=== PATIENT | male | born 1970 | race Caucasian/White ===

== ENCOUNTER 2022-06-14 15:59 | Inpatient (IN) | payer BC ==
[~2022-06-14] VITALS: Ht 182.9 cm; Wt 87.5 kg
[2022-06-14 16:00] VITALS: BP_SYST 143
--- NOTE | 2022-06-14 16:04 | NUR ---
CALLED TO CHARGE NURSE FOR IMMEDIATE BED NEED, PT TRIAGED AND BROUGHT IMMEDIATELY BROUGHT BACK TO BED #8 VIA WHEELCHAIR. SPOUSE WITH PT. DR SANDOVAL CALLED TO BEDSIDE UPON ARRIVAL.
--- NOTE | 2022-06-14 16:05 | NUR ---
PT STATES AT 1100 TODAY STARTED HAVING ON AND OFF CHEST PAIN, AT 1300 PAINS STARTED TO LEFT ARM, LEFT CHEST AND BETWEEN SHOULDER BLADES. PT STATES PAIN HAS NOW BECOME CONSTANT. PT PALE AND DIAPHORETIC. WITH PT.
[2022-06-14] MEDS ORDERED: MORPHINE 4 MG INJ. 4 MG/ML VIAL ONE (16:14)
[2022-06-14] MEDS ORDERED: NITROGLYCERIN 0.4 MG TAB.SUBL SL ONE ×2 (16:15→18:00)
[2022-06-14] MEDS ORDERED: MORPHINE 4 MG INJ. 4 MG/ML VIAL IVP ONE ×3 (16:15→18:00)
[2022-06-14] MEDS ORDERED: ASPIRIN 325 MG TABLET PO ONE (16:15)
[2022-06-14] MEDS ORDERED: NITROGLYCERIN 1 INCH (GM) OINT. TD ONE (16:15)
--- NOTE | 2022-06-14 16:16 | NUR ---
[facility]ED [facility] TO [facility]. [facility] STATED [facility] ARE CLOSED FOR STEMI SPOKE TO DUANE
--- NOTE | 2022-06-14 16:16 | NUR ---
EKG FAXED TO [facility] FOR EVALUATION
--- NOTE | 2022-06-14 16:22 | NUR ---
FAXED EKG TO [facility]. STATED SHE WILL CALL BACK WITH [employer] FOR PEER TO PEER WITH DR. SANDOVAL SPOKE TO JIMMY
[2022-06-14] MEDS ORDERED: NACL 0.9% 1,000 ML IV ONE (16:45)
[2022-06-14] MEDS ORDERED: FAMOTIDINE PF 20 MG/2 ML VIAL IVP ONE (16:45)
[2022-06-14 16:47] LABS: BASOPHILS % (AUTO) 0.2 % (0.0-2.0); EOSINOPHILS # (AUTO) 0.1 K/uL (0.0-0.4); EOSINOPHILS % (AUTO) 0.6 % (0.0-4.0); HEMATOCRIT 47.4 % (36-54); LYMPHOCYTES # (AUTO) 2.2 K/uL (1.0-5.5); LYMPHOCYTES % (AUTO) 16.7 % (20.5-51.5); MEAN CORPUSCULAR HEMOGLOBIN 31 pg (27-31); MEAN CORPUSCULAR HGB CONC 34 % (32-36); MEAN CORPUSCULAR VOLUME 92 fL (79.0-98.0); MONOCYTES # (AUTO) 0.6 K/uL (0.0-1.0); MONOCYTES % (AUTO) 4.9 % (1.7-9.3); NEUTROPHILS # (AUTO) 10.2 K/uL (1.8-7.7); NEUTROPHILS % (AUTO) 77.6 % (40.0-70.0); PLATELET COUNT (AUTO) 178 K/uL (130-430); RED BLOOD CELL COUNT(AUTO) 5.14 MIL/uL (4.2-6.2); RED CELL DISTRIBUTION WIDTH 12.7 % (9.0-15.0); WHITE BLOOD COUNT (AUTO) 13.1 K/uL (4.8-10.8)
[2022-06-14 16:48] LABS: ALANINE AMINOTRANSFERASE 35 U/L (12-78); ANION GAP 8 (5-15); ASPARTATE AMINOTRANSFERASE 16 U/L (10-37); CALCIUM 8.9 mg/dL (8.4-11.0); CHLORIDE 104 mmol/L (98-107); CREATININE 1.29 mg/dL (0.55-1.30); GFR AFRICAN AMERICAN 75 mL/min (>90); GLUCOSE 139 mg/dL (70-99); TOTAL BILIRUBIN 0.3 mg/dL (0.0-1.0); UREA NITROGEN, BLOOD 15 mg/dL (8-21)
[2022-06-14 16:50] LABS: PHOSPHORUS 2.3 mg/dL (2.7-4.5)
--- NOTE | 2022-06-14 16:50 | NUR ---
PORTABLE XRAY AT THE BEDSIDE
[2022-06-14 17:12] LABS: PROTHROMBIN TIME 9.9 SECS (9.5-12.5)
--- NOTE | 2022-06-14 17:25 | NUR ---
AMADOU HERNANDEZ CALLED BACK TO GIVE UPDATE. STATED PLAN IS TO DIRECT ADMIT TO [facility] TOMORROW. STATED THEY WILL CALL BACK WITH TRANSFER INFO ONCE AVAILBLE. SPOKE TO JIMMY
--- NOTE | 2022-06-14 17:29 | NUR ---
NO ACUTE CHNAGES IN CONDITION, PT IN NAD.
[2022-06-14] MEDS ORDERED: ONDANSETRON HCL 4 MG/2 ML VIAL IVP ONE (18:00)
--- NOTE | 2022-06-14 18:12 | NUR ---
CONTACT WITH PT, LAYING ON BED, IN NO APPARENT DISTRESS. AT BEDSIDE, MS AND ZOFRAN IV ORDERED, PT'S BP 120/63, PAIN 2/10, PER PT, DOES NOT WANT ANY PAIN MEDS AT THIS TIME. DR SANDOVAL MADE AWARE. NITRO CANCELLED.
--- NOTE | 2022-06-14 18:15 | NUR ---
COVID PCR SWAB DONE AND SENT TO LAB
--- NOTE | 2022-06-14 18:16 | NUR ---
PER REPORT, PT WILL BE GOING TO [facility] INFORMED.
[2022-06-14] MEDS ORDERED: HEPARIN 25,000 UNITS/D5W 250ML 250 ML IV ONE (18:30)
--- NOTE | 2022-06-14 19:16 | NUR ---
REPORT GIVEN TO DOMINGA HOOKER, INFORMED WE NEED HEPARIN IVP ORDER TO START HEPARIN DRIP. DR CR INFORMED.
[2022-06-14] MEDS ORDERED: ENOXAPARIN SODIUM 80 MG/0.8 ML SYRINGE SUBCUT ONE (19:30)
--- NOTE | 2022-06-14 19:35 | NUR ---
pt a/o x 4 on the monitor. vitals are stable.
--- NOTE | 2022-06-14 19:36 | NUR ---
per md ramírez cancel heparin drip
--- NOTE | 2022-06-14 19:41 | NUR ---
Admit bed requested Patient will be admitted to care of Dr to Admitted to tele unit. Diagnosis nstemi Inpatient (Yes or No) yes Observation (Yes or No) no Orientation concerns or request close to nursing station (Yes or No) no Covid Status neg On vent or bipap no Isolation requirements no Needs a sitter no From Home (Yes or if No enter name of facility) yes Requires Dialysis (Yes or No) no Med Rec Completed (Yes of No) no
[2022-06-14] MEDS ORDERED: LORazepam 2 MG/ML VIAL IVP PRN (19:45)
[2022-06-14] MEDS ORDERED: MUPIROCIN 2% TOPICAL OINTMENT 22 GM NS PRN (19:45)
[2022-06-14] MEDS ORDERED: MAGNESIUM SULFATE 50 ML IV PRN (19:45)
[2022-06-14] MEDS ORDERED: ONDANSETRON HCL 4 MG/2 ML VIAL IVP PRN (19:45)
[2022-06-14] MEDS ORDERED: DOCUSATE SODIUM 100 MG CAPSULE PO PRN (19:45)
[2022-06-14] MEDS ORDERED: POTASSIUM CHLORIDE 20 MEQ TAB.PRT.SR PO PRN (19:45)
[2022-06-14] MEDS ORDERED: ACETAMINOPHEN 325 MG TABLET PO PRN ×2 (19:45→20:15)
[2022-06-14] MEDS ORDERED: MORPHINE 2 MG/ML INJ. SYRINGE IVP PRN (19:45)
--- NOTE | 2022-06-14 19:50 | NUR ---
pt trop 660 will notify
[2022-06-14] MEDS ORDERED: IBUP-1970 PO (20:05)
--- NOTE | 2022-06-14 20:06 | NUR ---
Medication reconciliation completed with information provided by pt at the bedside. Any prior medication reconciliation on file was reviewed and corrected.
--- NOTE | 2022-06-14 20:19 | NUR ---
trop 1180 aware
--- NOTE | 2022-06-14 20:19 | NUR ---
PRIMARY NURSE MADE AWARE OF CRITICAL RESULTS.
--- NOTE | 2022-06-14 20:20 | NUR ---
pt c/o 06/12 pain. pt will let me know whe pain increases and radiates to shoulder blade
[2022-06-14] MEDS ORDERED: ATORVASTATIN 20 MG TABLET PO ONE (20:30)
[2022-06-14] MEDS ORDERED: ATORVASTATIN 20 MG TABLET PO SCH (20:30)
--- NOTE | 2022-06-14 21:05 | NUR ---
ADMISSION NOTE Received patient from ER via gurney. Patient admitted with diagnosis of nstemi . Patient is awake, alert, oriented X 4. Patient oriented to hospital room, call light, toileting, pain management and safety-teach back done. Patient informed that I will be his nurse and that their room number is 118B. Personal belongings checked and Belongings List documented. Call light within reach.
[2022-06-14 21:10] VITALS: BP_SYST 115
[2022-06-14] MEDS: METOPROLOL TARTRATE 25 MG TABLET PO SCH (21:32)
--- NOTE | 2022-06-14 21:47 | NUR ---
CONSULTATION PAGED/CALLED Reason for Consultation: NSTEMI Person Who was Notified: DR HARPER ER CALLED CONSULT Consulting Physician:LEROY Cigar Binder Specialty: Ordering Physician: LIT
[2022-06-15 00:33] VITALS: BP_SYST 91
[2022-06-15 01:55] VITALS: BP_SYST 101
--- NOTE | 2022-06-15 03:01 | NUR ---
PAGED PAGED DOCTOR LEROY RUBY CRITICAL
--- NOTE | 2022-06-15 03:05 | NUR ---
DR. HARPER PAGED AND TALKED TO DR. HARPER FOR CRITICAL LAB RESULT, TROPONIN 20227. NO NEW ORDER GIVEN AT THIS TIME. PATIENT ASLEEP AT THIS TIME AND DENIES ANY CHEST PAIN WHEN ASKED. VITALS STABLE. WILL CONTINUE TO MONITOR.
[2022-06-15 05:50] LABS: BASOPHILS % (AUTO) 0.3 % (0.0-2.0); EOSINOPHILS # (AUTO) 0.2 K/uL (0.0-0.4); EOSINOPHILS % (AUTO) 2.4 % (0.0-4.0); HEMATOCRIT 41.7 % (36-54); HEMOGLOBIN 13.9 g/dL (14.0-18.0); LYMPHOCYTES % (AUTO) 33.2 % (20.5-51.5); MEAN CORPUSCULAR HEMOGLOBIN 31 pg (27-31); MEAN CORPUSCULAR HGB CONC 33 % (32-36); MEAN CORPUSCULAR VOLUME 94 fL (79.0-98.0); MONOCYTES # (AUTO) 0.6 K/uL (0.0-1.0); MONOCYTES % (AUTO) 7.3 % (1.7-9.3); NEUTROPHILS # (AUTO) 5.1 K/uL (1.8-7.7); NEUTROPHILS % (AUTO) 56.8 % (40.0-70.0); PLATELET COUNT (AUTO) 146 K/uL (130-430); RED BLOOD CELL COUNT(AUTO) 4.45 MIL/uL (4.2-6.2); RED CELL DISTRIBUTION WIDTH 13.1 % (9.0-15.0); WHITE BLOOD COUNT (AUTO) 8.9 K/uL (4.8-10.8)
[2022-06-15 06:49] LABS: CALCIUM 8.9 mg/dL (8.4-11.0); CREATININE 0.97 mg/dL (0.55-1.30)
[2022-06-15] MEDS: MORPHINE 2 MG/ML INJ. SYRINGE IVP PRN ×2 (07:37→12:17)
[2022-06-15 08:00] VITALS: BP_SYST 106
--- NOTE | 2022-06-15 08:00 | NUR ---
Initial note: Report received. Patient is awake alert x4. Call light in reach. Bed in the lowest position. Side rails x2 up. stated 5/10 chest pain. Morphine was given. Assessment is done and checked vitals. will continue to monitor.
[2022-06-15 08:01] LABS: CHOLESTEROL 159 mg/dL (<200); HDL CHOLESTEROL 44 mg/dL (>45); TRIGLYCERIDES 87 mg/dL (30-150)
--- NOTE | 2022-06-15 08:51 | NUR ---
Note: Dr. balbuena is here to see patient. plan of care discussed. Doctor is ok for nurse to give medications and breakfast.
[2022-06-15] MEDS: METOPROLOL TARTRATE 25 MG TABLET PO SCH (08:56)
[2022-06-15] MEDS ORDERED: ENOXAPARIN SODIUM 80 MG/0.8 ML SYRINGE SUBCUT SCH (09:00)
[2022-06-15] MEDS ORDERED: ATORVASTATIN 20 MG TABLET PO SCH (09:00)
[2022-06-15] MEDS ORDERED: ASPIRIN 81 MG TAB.CHEW PO SCH (09:00)
--- NOTE | 2022-06-15 09:48 | NUR ---
pt will go to [facility]. [facility] at 2:00pm. phone#[phone]
--- NOTE | 2022-06-15 10:50 | NUR ---
FOLLOWED UP WITH [facility] THE BED ASSIGNMENT. NO BED ASSIGNED AT THIS MOMENT. I WAS ASSURED BY CHARGE NURSE VIVIAN THAT BED WILL BE GIVEN BEFORE 1400 TODAY.
--- NOTE | 2022-06-15 11:29 | NUR ---
Patient is scheduled for Cardiac Cath at [facility] at 4PM today. Patient to transfer to [facility] at 2PM today by [facility] - Patient will be going to room 273B-Number for report [phone].
[2022-06-15 12:00] VITALS: BP_SYST 106
[2022-06-15 12:55] VITALS: BP_SYST 106
--- NOTE | 2022-06-15 13:06 | NUR ---
Note: [facility] Sanjuanita. She is aware patient will be transported around 2pm today.
--- NOTE | 2022-06-15 13:55 | NUR ---
Discharge note: patient is awake alert x4. Transportation is here to [employer] patient. No pain or discomfort at this time. All discharge paper signs and sent with patient in envelope. Patient left via gurney with IV heplocks.
== END 2022-06-15 14:00 | disposition short-term general hospital (02) | DRG 282 ==
LOC: SED 15:59 → STU 19:32
PROVIDERS: ADMIT Family Medicine; ATTEND Family Medicine
DX: I21.4 Non-ST elevation (NSTEMI) myocardial infarction (principal); F17.210 Nicotine dependence, cigarettes, uncomplicated; G89.29 Other chronic pain; M54.9 Dorsalgia, unspecified; Z20.822 Contact with and (suspected) exposure to COVID-19; Z96.649 Presence of unspecified artificial hip joint; Z96.653 Presence of artificial knee joint, bilateral; Z88.8 Allergy status to other drugs, medicaments and biological substances; Z79.899 Other long term (current) drug therapy
CPT/HCPCS: 36415; 71045; 80048; 80053; 80061; 82550; 83735; 84100; 84484; 85025; 85379; 85384; 85610-TC; 85730-TC; 93005; 96361; 96372; 96374; 96375; 96376; 99291; 99292; G0378; J1644; J1650; J2270; J2405; J3490; U0003